=== PATIENT | female | born 1985 | race Hispanic/Latino ===

== ENCOUNTER 2016-09-28 10:45 | Emergency (ER) | payer OTHER ==
[2016-09-28] MEDS ORDERED: Sodium Chloride 0.9% 1,000 ML IV STA (11:31)
--- NOTE | 2016-09-28 11:35 | ED PDOC ---
HPI: Back <Simin Snyder - Last Filed: 09/30/16 13:02> Chief Complaint (Provider): Back pain History Per: Patient History/Exam Limitations: no limitations Onset/Duration Of Symptoms: Days (7) Additional Complaint(s): Pt reports L sided abd pain and bilateral lower back pain X 1 week, one day of dysuria few days ago that resolved, evaluated by PMD, given Naprosyn and Rx ultrasound tomorrow. Now with fever, chills, malodorous urine and vomiting. <GustavoGeorgea - Last Filed: 10/01/16 12:32> Time Seen by Provider: 09/28/16 11:20 Chief Complaint (Nursing): Back Pain Past Medical History Vital Signs: Last Vital Signs Temp 98.3 F 09/28/16 15:07 Pulse 90 09/28/16 15:07 Resp 19 09/28/16 15:07 BP 106/68 09/28/16 15:07 Pulse Ox 98 09/28/16 15:07 <Simin Snyder - Last Filed: 09/30/16 13:02> Reviewed: Nursing Documentation, Vital Signs Vital Signs: Last Vital Signs Temp 101 F H 09/28/16 11:20 Pulse 108 H 09/28/16 11:20 Resp 20 09/28/16 11:20 BP 98/52 L 09/28/16 11:20 Pulse Ox 100 09/28/16 11:20 - Medical History PMH: No Chronic Diseases, Chronic Kidney Disease - Surgical History Surgical History: - Family History Family History: States: Unknown Family Hx - Social History Current smoker - smoking cessation education provided: No Alcohol: None - Immunization History Hx Tetanus Toxoid Vaccination: No Hx Influenza Vaccination: No Hx Pneumococcal Vaccination: No <GustavoGeorgea - Last Filed: 10/01/16 12:32> - Home Medications Home Medications: Ambulatory Orders Medication Instructions Recorded Naproxen [Naprosyn] 1 tab PO PRN PRN 09/28/16 Naproxen [Naprosyn] 500 mg PO BID PRN #15 tablet 09/28/16 Nitrofurantoin Macrocrystals 100 mg PO BID #14 cap 09/28/16 [Macrobid] - Allergies Allergies/Adverse Reactions: Allergies Allergy/AdvReac Type Severity Reaction Status Date / Time No Known Allergies Allergy Verified 09/28/16 11:25 Review of Systems Constitutional: Positive for: Fever, Chills. Negative for: Weakness Respiratory: Negative for: Cough, Shortness of Breath Gastrointestinal: Positive for: Nausea, Vomiting, Abdominal Pain. Negative for : Diarrhea Genitourinary Female: Positive for: Dysuria, Pelvic Pain. Negative for: Hematuria, Vaginal Discharge, Vaginal Bleeding Skin: Negative for: Rash, Lesions Neurological: Negative for: Headache, Dizziness <Mary Chen - Last Filed: 10/01/16 12:32> Physical Exam - Reviewed Nursing Documentation Reviewed: Yes Vital Signs Reviewed: Yes - Physical Exam Appears: Positive for: Well, No Acute Distress Skin: Positive for: Normal Color, Warm, Dry Cardiovascular/Chest: Positive for: Tachycardia Respiratory: Positive for: Normal Breath Sounds. Negative for: Rales, Rhonchi, Wheezing Gastrointestinal/Abdominal: Positive for: Normal Exam, Bowel Sounds, Soft. Negative for: Tenderness, Guarding, Rebound Back: Positive for: Normal Inspection, L CVA Tenderness, R CVA Tenderness Extremity: Positive for: Normal ROM Neurologic/Psych: Positive for: Alert, Oriented <Mary Chen Eddie - Last Filed: 10/01/16 12:32> - Laboratory Results Result Diagrams: 09/28/16 11:51 09/28/16 11:51 <Simin Snyder - Last Filed: 09/30/16 13:02> - Laboratory Results Result Diagrams: 09/28/16 11:51 09/28/16 11:51 - ECG O2 Sat by Pulse Oximetry: 100 <Mary Chen - Last Filed: 10/01/16 12:32> Medical Decision Making Medical Decision Making: Urine culture results are positive, patient was appropriately treated with Macrobid as per sensitivity <Simin Snyder - Last Filed: 09/30/16 13:02> Medical Decision Makin yo female with dysuria, fever and back pain. - labs - Tylenol - Toradol - Zofran - IVF - CT abd/pelvis <Mary Chen Last Filed: 10/01/16 12:32> Disposition <Simin Snyder - Last Filed: 09/30/16 13:02> - Disposition Disposition: Routine/Home Disposition Time: 14:56 <Mary Chen Filed: 10/01/16 12:32> - Clinical Impression Clinical Impression: UTI (urinary tract infection) - Disposition Referrals: Jenniffer Galvin MD [Medical Doctor] - Condition: IMPROVED Prescriptions: Nitrofurantoin Macrocrystals [Macrobid] 100 mg PO BID #14 cap Naproxen [Naprosyn] 500 mg PO BID PRN #15 tablet PRN Reason: Pain, Moderate (4-7) Instructions: Urinary Tract Infection in Women (ED)
[2016-09-28 11:56] LABS: BASO % 0.2 % (0.0-2.0); EOS % 0.3 % (0.0-4.0); HEMATOCRIT 36.8 % (34.0-47.0); MEAN CELL VOLUME 93.4 fl (81.0-99.0); MEAN CORPUSCULAR HEMOGLOBIN 32.1 pg (27.0-31.0); MEAN CORPUSCULAR HGB CONC 34.3 g/dL (33.0-37.0); MEAN PLATELET VOLUME 9.6 fl (7.2-11.7); MONO # 0.6 K/uL (0.0-0.8); MONO % 4.6 % (0.0-10.0); NEUT # 10.5 K/uL (1.8-7.0); NEUT % 86.9 % (50.0-75.0); PLATELET COUNT 249 K/uL (130-400); RED CELL DISTRIBUTION WIDTH 12.2 % (11.5-14.5); WHITE BLOOD COUNT 12.1 K/uL (4.8-10.8)
[2016-09-28 11:59] LABS: VENOUS BLOOD GAS BASE EXCESS 2.9 mmol/L (0.0-2.0); VENOUS BLOOD GAS PCO2 43 mmHg (40-60); VENOUS BLOOD PH 7.42 (7.32-7.43)
[2016-09-28 12:20] LABS: RBC URINE 23 /hpf (0-3); URINE BACTERIA OCC (<OCC); URINE BILIRUBIN NEGATIVE (NEGATIVE); URINE BLOOD MODERATE (NEGATIVE); URINE COLOR YELLOW (YELLOW); URINE GLUCOSE (UA) NEG (Normal); URINE KETONE NEGATIVE (NEGATIVE); URINE LEUKOCYTE ESTERASE MOD Leu/uL (Negative); URINE PROTEIN 30 mg/dL (NEGATIVE); URINE UROBILINOGEN 0.2-1.0 mg/dL (0.2-1.0)
[2016-09-28 12:21] LABS: ALB/GLOB RATIO 1.2 (1.0-2.1); ALKALINE PHOSPHATASE 90 U/L (38-126); ALT/SGPT 38 U/L (9-52); AST/SGOT 36 U/L (14-36); BILIRUBIN,TOTAL 0.8 mg/dl (0.2-1.3); BLOOD UREA NITROGEN 11 mg/dl (7-17); CALCIUM 10.1 mg/dL (8.4-10.2); CARBON DIOXIDE 26 mmol/L (22-30); CHLORIDE 101 mmol/L (98-107); GFR AFRICAN-AMERICAN > 60; GLUCOSE,RANDOM 96 mg/dL (65-105); POTASSIUM 4.1 MMOL/L (3.6-5.0); SODIUM 140 mmol/l (132-148); TOTAL PROTEIN 7.9 G/DL (6.3-8.2)
[2016-09-28 12:22] LABS: PARTIAL THROMBOPLASTIN TIME 28.6 SECONDS (23.3-32.5)
[2016-09-28 12:35] LABS: WBC URINE 127 /hpf (0-5)
--- NOTE | 2016-09-28 13:01 | CT ---
PROCEDURE: CT Abdomen and Pelvis without intravenous contrast HISTORY: Bilateral flank pain, fever, dysuria COMPARISON: None. TECHNIQUE: Helical CT scan of the abdomen and pelvis was performed for targeted evaluation of urinary calculi without administration of oral or intravenous contrast. Coronal and sagittal reformatted images were obtained. Radiation dose: Total exam DLP = 837.40 mGy-cm. FINDINGS: LOWER THORAX: There is bibasilar subsegmental atelectasis LIVER: The liver is normal in size. No gross lesion or ductal dilatation. GALLBLADDER AND BILE DUCTS: The gallbladder is contracted. PANCREAS: The pancreas is normal in size. No gross lesion or ductal dilatation. SPLEEN: The spleen is normal in size. There is a 2.0 cm simple cyst in the interpolar region. ADRENALS: Both adrenal glands are normal in size without discrete nodule. KIDNEYS AND URETERS: Both kidneys are normal in size. There is no hydronephrosis or nephrolithiasis. VASCULATURE: Normal in caliber. No evidence of aortic aneurysm. BOWEL: The small bowel loops are normal in caliber. There is large amount of stool in the colon. There is no evidence of bowel dilatation or obstruction. APPENDIX: Normal. PERITONEUM: No free fluid or free intraperitoneal air. LYMPH NODES: No enlarged lymph nodes. BLADDER: Normal in appearance. REPRODUCTIVE: The uterus is normal in size. No adnexal masses. BONES: No acute fracture. Within normal limits for the patient's age. OTHER FINDINGS: None. IMPRESSION: 1. No nephrolithiasis, hydronephrosis or obstructive uropathy. 2. Constipation. No evidence of bowel obstruction. 3. Normal appendix. 4. 2.0 cm simple cyst in the spleen.
[2016-09-28] MEDS ORDERED: cefTRIAXone (Rocephin) 1 gm Inj ONE (13:49)
[2016-09-28 13:59] LABS: NEUTROPHIL 87 % (42-75); REACTIVE LYMPHOCYTES 2 % (0-0); TOTAL CELLS COUNTED 100
[2016-09-28 14:09] VITALS: TEMP 98.3
[2016-09-28 15:09] VITALS: BP 106/68; PULSE 90; RESP 19
[2016-10-01 12:32] VITALS: O2SAT 100
== END 2016-09-28 15:25 | disposition short-term general hospital (02) ==
LOC: H.ER 10:45
DX: N39.0 Urinary tract infection, site not specified (principal); R30.0 Dysuria; M54.5 Low back pain; R10.9 Unspecified abdominal pain

== ENCOUNTER 2017-03-05 10:48 | Emergency (ER) | payer OTHER ==
[2017-03-05 10:58] VITALS: BP 133/71; PULSE 75; RESP 16; TEMP 98; O2SAT 98
[2017-03-05 10:59] VITALS: BMI 28.3
[2017-03-05] MEDS ORDERED: Lidocaine 1% Inj (20ml) IJ ONE (11:04)
--- NOTE | 2017-03-05 11:50 | ED PDOC ---
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 tetatnus is uptodate. FROM mild active bleeding no weakness right rhand dominant. Past Medical History Reviewed: Historical Data, Nursing Documentation, Vital Signs Vital Signs: Last Vital Signs Temp 98 F 03/05/17 10:57 Pulse 75 03/05/17 10:57 Resp 16 03/05/17 10:57 BP 133/71 03/05/17 10:57 Pulse Ox 98 03/05/17 10:57 - Medical History PMH: Chronic Kidney Disease - Surgical History Surgical History: - Family History Family History: States: Unknown Family Hx - Immunization History Hx Tetanus Toxoid Vaccination: No Hx Influenza Vaccination: No Hx Pneumococcal Vaccination: No - Home Medications Home Medications: Ambulatory Orders Medication Instructions Recorded Naproxen [Naprosyn] 1 tab PO PRN PRN 09/28/16 Naproxen [Naprosyn] 500 mg PO BID PRN #15 tablet 09/28/16 Nitrofurantoin Macrocrystals 100 mg PO BID #14 cap 09/28/16 [Macrobid] Cephalexin [cephalexin] 500 mg PO BID #14 cap 03/05/17 - Allergies Allergies/Adverse Reactions: Allergies Allergy/AdvReac Type Severity Reaction Status Date / Time No Known Allergies Allergy Verified 09/28/16 11:25 Review of Systems ROS Statement: Except As Marked, All Systems Reviewed And Found Negative Skin: Positive for: Lesions Physical Exam - Reviewed Nursing Documentation Reviewed: Yes Vital Signs Reviewed: Yes - Physical Exam Appears: Positive for: Well, Non-toxic, No Acute Distress Skin: Positive for: Normal Color, Warm, DRY Extremity: Positive for: Other (left hand:4th digit volar side DIP 2cm lacertion irregular partial thickness mild actve bleed. FROM) Neurologic/Psych: Positive for: Alert, Oriented - ECG O2 Sat by Pulse Oximetry: 98 Procedure: Wound Repair - Time Performed Time Performed: 11:51 - Time Out Time Out: Side verified, Site verified, Patient ID confirmed, Sterile procedures obs. - Procedure Procedure: Wound Repair: laceration - Consent Obtained Consent obtained: Emergent consent implied - Performed by Performed by: Mid-level Provider - Indications Indication(s):: Laceration - Location Finger:: Left, Ring Shape:: Curvilinear Dimensions Length cm: 2 Depth:: Epidermis - Anesthetic Technique Anesthetic Technique: Local Local/Regional Anesthetic:: Lidocaine 1% - Debris Debris:: None - Irrigated Irrigated with ml of normal saline: 125 - Complexity Complexity:: Simple (one layer) - Wound repair method Sutures:: # (5), Size (6-0), Type (nylon), Technique (simple interrupted) Medical Decision Making Medical Decision Making: PT given wound care instructions. stable for d/c given finger splint. Disposition - Clinical Impression Clinical Impression: Laceration - Patient ED Disposition Is Patient to be Admitted: No Counseled Patient/Family Regarding: Studies Performed, Diagnosis, Need For Followup - Disposition Disposition: Routine/Home Disposition Time: 11:52 Condition: STABLE Additional Instructions: please follow up with your doctor in 6-8 days for suture removal. please keep wound clean and dry. do not wet wound keep the splint on. Prescriptions: Cephalexin [cephalexin] 500 mg PO BID #14 cap Instructions: Care For Your Stitches (ED), Laceration (ED) Forms: [employer] (Japanese)
[2017-03-05] MEDS ORDERED: Silver Nitrate Topical - Stick ONE (13:43)
== END 2017-03-05 12:31 | disposition home or self-care (01) ==
LOC: H.ER 10:48
DX: S61.412A Laceration without foreign body of left hand, initial encounter (principal); W26.8XXA Contact with other sharp object(s), not elsewhere classified, initial encounter; Y99.0 Civilian activity done for income or pay